=== PATIENT | female | born 1955 | race Two or more races ===

== ENCOUNTER 2024-06-30 12:33 | Inpatient (IN) | payer OTHER ==
[~2024-06-30] VITALS: Ht 160 cm; Wt 72.6 kg
[~2024-06-30 12:33] MED LIST: CLONAZEPAM 2 MG; COZAAR25 MG; KETO10TA2 PO; MONTELUKAST; NORFLEX100MG PO; PEPCID; PRILOSEC OTC20 MG; SEROQUEL; SEROQUEL200 MG; TRAZODONE 150 MG; WELLBUTRIN XL150 M1; ZYRTEC; [UNRECOGNIZED DRUG - OTHER]
--- NOTE | 2024-06-30 12:52 | NUR ---
SE RECIBE FEMINA ALERTA Y ORIENTADA POR AIMEE ESFERAS, EN AMBULANCIA. REFIERE DOLOR ABDOMINAL, VOMITOS Y NAUSEAS DE AIMEE SHAFFER DE EVOLUCION.
[2024-06-30] MEDS ORDERED: 0.9 % SODIUM CHLORIDE 1,000 ML IV SCH ×2 (13:03→19:30)
--- NOTE | 2024-06-30 13:45 | NUR ---
PTE EVALUADA 68 YRS ALERTA CONCIENTE Y TRANQUILA .PE LLEGA EN AMBULANCIA POR VOMITOS Y DIARREAS . PTE EVALIDA POR EL DR. TARANGO QUIE ORDENA TRATAMIENTO LA CUAL SE EJECUTA. SE LE DA CONTRASTE PO DE GASTROVIEW Y SE LE ENVASE [PAR AL RONALD DE UA Y FECAL. SE MANTIENE BAJO OBSERVACION.
[2024-06-30 13:47] LABS: HEMATOCRIT 36.6 % (36.0-45.00); HEMOGLOBIN 12.7 g/dL (12.0-15.00); MEAN CELL VOLUME 82.3 fL (80.00-100.00); MEAN CORPUSCULAR HEMOGLOBIN 28.6 pg (27.00-32.0); MEAN CORPUSCULAR HGB CONC 34.7 g/dl (32.0-36.0); RED BLOOD COUNT 4.45 M/uL (4.00-6.00); RED CELL DISTRIBUTION WIDTH 14.2 % (11.5-14.5)
[2024-06-30 14:14] LABS: CALCIUM 8.8 mg/dL (8.5-10.1); CREATININE SERUM 0.75 mg/dL (0.55-1.02); GFR 77.31; POTASSIUM 3.97 mEq/L (3.5-5.1)
[2024-06-30 14:47] LABS: PLATELET COUNT 66 K/uL (150-450)
--- NOTE | 2024-06-30 15:17 | NUR ---
SE RECIBE PTE ALERTA Y ORIENTADA X3 LA MISMA EN ARACELI BAJA POR SEGURIDAD. SE OBSERVA PACIENTE CON CANALIZACION PATENTE POR DONDE BAJA IVFLUIDS ZAKIYA ORDEN MEDICA. PTE EN ESPERA DE RE-EVALUACION MEDICA.
[2024-06-30] MEDS ORDERED: ONDANSETRON HCL 4 MG in 0.9 % SODIUM CHLORIDE 50 ML IV PRN (19:30)
[2024-06-30] MEDS ORDERED: ACETAMINOPHEN 500 MG GEL..CAP PO PRN (19:30)
[2024-06-30] MEDS ORDERED: LACTOBACILLUS ACIDOPHILUS 1 CAP CAP PO SCH (19:30)
[2024-06-30] MEDS ORDERED: PANTOPRAZOLE SODIUM 40 MG/VIAL VIAL IV SCH (19:30)
[2024-06-30 21:48] LABS: INR 0.97; MAGNESIUM 2.1 mg/dL (1.8-2.4); PARTIAL THROMBOPLASTIN TIME 29.1 SECONDS (22.0-34.0); PHOSPHOROUS 2.8 mg/dL (2.5-4.9); PROTHROMBIN TIME 10.6 SECONDS (9.0-11.5)
[2024-07-01 00:34] VITALS: BP 117/67; O2SAT 96
[2024-07-01 00:53] LABS: ob NEGATIVE (NEGATIVE)
[2024-07-01 02:06] VITALS: BP 126/66
[2024-07-01 05:08] LABS: HEMATOCRIT 36.2 % (36.0-45.00); HEMOGLOBIN 12.6 g/dL (12.0-15.00); MEAN CELL VOLUME 83.2 fL (80.00-100.00); MEAN CORPUSCULAR HEMOGLOBIN 28.8 pg (27.00-32.0); MEAN CORPUSCULAR HGB CONC 34.7 g/dl (32.0-36.0); RED BLOOD COUNT 4.35 M/uL (4.00-6.00); RED CELL DISTRIBUTION WIDTH 14.2 % (11.5-14.5)
[2024-07-01 05:34] LABS: PLATELET COUNT 71 K/uL (150-450)
[2024-07-01 09:00] VITALS: BP 122/81; O2SAT 96
[2024-07-01 16:49] LABS: ALBUMIN 3.2 gm/dL (3.4-5.0); BILIRUBIN TOTAL 0.4 mg/dL (0.3-1.2); CALCIUM 8.9 mg/dL (8.5-10.1); CREATININE SERUM 0.57 mg/dL (0.55-1.02); GFR 106.12; GLOBULINA 3.4 G/DL (2.4-3.5); POTASSIUM 3.92 mEq/L (3.5-5.1); TOTAL PROTEIN 6.6 gm/dL (6.4-8.2)
[2024-07-01 20:12] VITALS: BP 136/72
[2024-07-02 00:26] VITALS: BP 127/75; O2SAT 95
[2024-07-02 08:45] LABS: URINE APPEARANCE Clear; URINE BILIRRUBIN Negative (NEGATIVE); URINE BLOOD Large; URINE COLOR Yellow; URINE GLUCOSE Negative (NEGATIVE); URINE KETONE Negative (NEGATIVE); URINE LEUKOCYTE Negative; URINE NITRATE Negative; URINE PROTEIN Negative (NEGATIVE); URINE UROBILINOGEN 0.2 E.U./dl
[2024-07-02 08:46] LABS: URINE BACTERIA 13.8 uL (0.0-1933); URINE EPITHELIAL CELLS 1.8 uL (0.0-38.8); URINE RBC 26.4 uL (0.0-20.8); URINE WBC 4.1 uL (0.0-23.2)
[2024-07-02 09:25] VITALS: BP 129/81
[2024-07-02 09:32] LABS: HEMATOCRIT 36.1 % (36.0-45.00); HEMOGLOBIN 12.6 g/dL (12.0-15.00); MEAN CELL VOLUME 81.9 fL (80.00-100.00); MEAN CORPUSCULAR HEMOGLOBIN 28.6 pg (27.00-32.0); RED BLOOD COUNT 4.41 M/uL (4.00-6.00); RED CELL DISTRIBUTION WIDTH 14.6 % (11.5-14.5)
[2024-07-02 09:48] LABS: PLATELET COUNT 94 K/uL (150-450)
[2024-07-04 11:14] LABS: FOLIC ACID > 20.00 ng/ml (4.78-20)
== END 2024-07-02 13:28 | DRG 866 ==
LOC: ER 12:33 → MEDI 20:55
PROVIDERS: Emergency Medicine; General Practice; Internal Medicine Hematology & Oncology; ADMIT Internal Medicine; ATTEND Internal Medicine
PROC: BW21YZZ Computerized Tomography (CT Scan) of Abdomen and Pelvis using Other Contrast (ICD-10-PCS; principal; 2024-06-30)
DX: B34.9 Viral infection, unspecified (principal); A90 Dengue fever [classical dengue]; D69.6 Thrombocytopenia, unspecified; I10 Essential (primary) hypertension